=== PATIENT | female | born 1975 | race Caucasian/White ===

== ENCOUNTER → 2016-06-28 | Outpatient (CLI) | payer MEDICARE, OTHER ==
[2016-06-28 13:18] VITALS: BP 129/87; PULSE 75; RESP 16; TEMP 97.6; BMI 38.4
--- NOTE | 2016-06-28 15:20 | P.HPBAR ---
Bariatric H&P - History & Physicial H&P Date: 06/28/16 History & Physicial: Visit/CC: Sleeve follow-up Patient initial contact: Initial weight: 101.605 kg Initial weight in pounds: 224.00 Height: 5 ft 4 in Initial BMI: 38.4 Last weight: Current weight: 101.605 kg Current weight in pounds: 224.00 Current BMI: 38.4 Alexander body weight (based on NIH guidelines): 54.431 kg Excess body weight loss: 0.0% The patient is a 40 year-old F who presents for Bariatric Assessment. Patient presents for sleeve gastrectomy follow-up. She had her sleeve performed 2013. I have not seen her over a year. Patient states that she has some mild GERD and arthritis symptoms. She states that she has had some weight gain. Past Medical History History of Any Multi-Drug Resistant Organisms: None Reported Smoking Status: Unknown if ever smoked Surgical - Exam Vital Signs Temp Pulse Resp BP 97.6 F 75 16 129/87 06/28/16 13:14 06/28/16 13:14 06/28/16 13:14 06/28/16 13:14 - General well developed, no distress - Eyes PERRL - ENT normal pinna - Neck no masses - Respiratory normal expansion - Cardiovascular Rhythm: regular - Abdomen Abdomen: soft, non tender Bariatric Assessment & Plan Plan: Status post sleeve yesterday. Patient's GERD symptoms are minimal be observed. The patient will visit with the dietitian today she'll follow-up in one month. Bariatric Checklist Checklist: Plan: Checklist: EGD: 1. Hiatal hernia: 2. H. Pylori: HgbA1c: Vitamin D: Smoking: Unknown if ever smoked Primary care physician referral: Dr. Campbell Psychiatry clearance: Cardiology clearance: Sleep study: Diet journal: VTE risk score: VTE risk level: Rehab needs at discharge:
== END | disposition home or self-care (01) ==
LOC: BARWHC3 12:54
PROVIDERS: ATTEND Surgery
DX: Z48.815 Encounter for surgical aftercare following surgery on the digestive system (principal); Z71.3 Dietary counseling and surveillance; K21.9 Gastro-esophageal reflux disease without esophagitis; M19.90 Unspecified osteoarthritis, unspecified site; Z68.38 Body mass index [BMI] 38.0-38.9, adult; Z98.84 Bariatric surgery status
CPT/HCPCS: 97803; G0463; 99211